=== PATIENT | male | born 2005 | race Caucasian/White ===

== ENCOUNTER 2024-08-09 02:35 | Emergency (ER) | payer SELFPAY ==
--- NOTE | 2024-08-09 02:58 | EDPHYS ---
Physician Documentation [facility] Name: Ewelina Jimenez Age: 18 yrs Sex: Male : 2005 Arrival Date: 08/09/2024 Time: 02:35 Bed 20 Private MD: JEFFERSON Physician Kentrell Fu HPI: 08/09 02:52 This 18 yrs old Male presents to ER via Unassigned with complaints of Leg Pain, jasiel NUMBNESS/SUSPICIOUS BUMPS-LEGS JUANA. 02:52 The patient presents with pain, that is chronic. The complaints affect the right calf jasiel and right quadriceps. Context: resulted from an unknown cause, the patient can fully bear weight, the patient is able to ambulate, without difficulty. Onset: The symptoms/episode began/occurred 45 day(s) ago. Modifying factors: The symptoms are alleviated by nothing. the symptoms are aggravated by nothing. Associated signs and symptoms: The patient has no apparent associated signs or symptoms. Severity of symptoms: At their worst the symptoms were mild, in the emergency department the symptoms are unchanged. Historical: - Allergies: 02:55 No Known Allergies; rg5 - Home Meds: 02:55 None [Active]; rg5 - PMHx: 02:55 None; rg5 - PSHx: 02:55 None; rg5 - Immunization history:: Flu vaccine is up to date. - Infectious Disease History:: Denies. - Family history:: not pertinent. - Social history:: Smoking status: Reported history of juuling and/or vaping. ROS: 02:54 Constitutional: Negative for fever, chills, and weight loss, Eyes: Negative for injury, jasiel pain, redness, and discharge, ENT: Negative for injury, pain, and discharge, Neck: Negative for injury, pain, and swelling, Cardiovascular: Negative for chest pain, palpitations, and edema, Respiratory: Negative for shortness of breath, cough, wheezing, and pleuritic chest pain, Abdomen/GI: Negative for abdominal pain, nausea, vomiting, diarrhea, and constipation, Back: Negative for injury and pain, : Negative for injury, bleeding, discharge, and swelling, Skin: Negative for injury, rash, and discoloration, Neuro: Negative for headache, weakness, numbness, tingling, and seizure, Psych: Negative for depression, anxiety, suicide ideation, homicidal ideation, and hallucinations, Allergy/Immunology: Negative for hives, rash, and allergies, Endocrine: Negative for neck swelling, polydipsia, polyuria, polyphagia, and marked weight changes, Hematologic/Lymphatic: Negative for swollen nodes, abnormal bleeding, and unusual bruising, 02:54 MS/extremity: Positive for swelling, of the right calf and right quadriceps, Exam: 02:54 Constitutional: This is a well developed, well nourished patient who is awake, alert, jasiel and in no acute distress. Head/Face: Normocephalic, atraumatic. Eyes: Pupils equal round and reactive to light, extra-ocular motions intact. Lids and lashes normal. Conjunctiva and sclera are non-icteric and not injected. Cornea within normal limits. Periorbital areas with no swelling, redness, or edema. ENT: Nares patent. No nasal discharge, no septal abnormalities noted. Tympanic membranes are normal and external auditory canals are clear. Oropharynx with no redness, swelling, or masses, exudates, or evidence of obstruction, uvula midline. Mucous membranes moist. Neck: Trachea midline, no thyromegaly or masses palpated, and no cervical lymphadenopathy. Supple, full range of motion without nuchal rigidity, or vertebral point tenderness. No Meningismus. Chest/axilla: Normal chest wall appearance and motion. Nontender with no deformity. No lesions are appreciated. Cardiovascular: Regular rate and rhythm with a normal S1 and S2. No gallops, murmurs, or rubs. Normal PMI, no JVD. No pulse deficits. Respiratory: Lungs have equal breath sounds bilaterally, clear to auscultation and percussion. No rales, rhonchi or wheezes noted. No increased work of breathing, no retractions or nasal flaring. Abdomen/GI: Soft, non-tender, with normal bowel sounds. No distension or tympany. No guarding or rebound. No evidence of tenderness throughout. Back: No spinal tenderness. No costovertebral tenderness. Full range of motion. Male : Normal genitalia with no discharge or lesions. Skin: Warm, dry with normal turgor. Normal color with no rashes, no lesions, and no evidence of cellulitis. Neuro: Awake and alert, GCS 15, oriented to person, place, time, and situation. Cranial nerves II-XII grossly intact. Motor strength 5/5 in all extremities. Sensory grossly intact. Cerebellar exam normal. Normal gait. Psych: Awake, alert, with orientation to person, place and time. Behavior, mood, and affect are within normal limits. 02:54 Musculoskeletal/extremity: ROM: intact in all extremities, full active range of motion, full passive range of motion, Circulation is intact in all extremities. Sensation intact. Compartment Syndrome exam of affected extremity: is normal. DVT Exam: no tenderness, negative Homans' sign noted on exam, no appreciated bluish discoloration, no erythema, no increased warmth, pain, swelling, 02:58 Musculoskeletal/extremity: Extremities: all appear grossly normal, with no appreciated jasiel pain with palpation, right anterior thigh, nodules, not infected, Joints: All joints appear normal with full range of motion. Weight bearing: able to fully bear weight, without difficulty, Tendon exam: specific tendon testing normal through active and passive range of motion Vital Signs: 02:50 BP 144 / 80; Pulse 85; Resp 17; Temp 98(O); Pulse Ox 99% on R/A; Weight 93.44 kg; rg5 Height 6 ft. 0 in. ; Pain 2/10; 02:55 BP 144 / 80; Pulse 85; Resp 17; Temp 98(O); Pulse Ox 99% on R/A; Pain 2/10; rg5 02:50 Body Mass Index 27.94 (93.44 kg, 182.88 cm) rg5 02:50 Pain Scale: Adult rg5 02:55 Pain Scale: Adult rg5 [place] Coma Score: 02:58 Eye Response: spontaneous(4). Motor Response: obeys commands(6). Verbal Response: rg5 oriented(5). Total: 15. MDM: 02:40 Patient medically screened. jasiel 02:56 Differential diagnosis: contusion, tendonitis. Data reviewed: vital signs, nurses jasiel notes. Consideration of Admission/Observation Escalation of care including admission/observation considered. I considered the following discharge prescriptions or medication management in the emergency department Medications were administered in the Emergency Department. See MAR. Administered Medications: No medications were administered Disposition Summary: 08/09/24 02:57 Discharge Ordered Notes: Location: Home(08/09/24 02:57) jasiel Problem: new(08/09/24 02:57) jasiel Symptoms: have improved(08/09/24 02:57) jasiel Condition: Stable(08/09/24 02:57) jasiel Diagnosis - Pain in right leg - lumps, chronic jasiel Followup: jasiel - With: Private Physician - When: 2 - 3 days - Reason: Recheck today's complaints, Continuance of care, Re-evaluation by your physician Followup: jasiel - With: Ablino Mac MD - When: 2 - 3 days - Reason: Recheck today's complaints, Re-evaluation by your physician Discharge Instructions: - Discharge Summary Sheet jasiel - [place] jasiel - Musculoskeletal Pain jasiel Forms: - Medication Reconciliation Form jasiel - Antibiotic Education jasiel - Prescription Opioid Use jasiel - Patient Portal Instructions jasiel - Leadership Thank You Letter [facility] Prescriptions: - Cephalexin 500 mg Oral capsule - take 1 capsule ORAL route every 6 hours for 7 days; 28 capsule; Refills: 0, jasiel Product Selection Permitted - Ibuprofen 600 mg Oral tablet - take 1 tablet ORAL route every 6 hours As needed take with food; 20 tablet; jasiel Refills: 0, Product Selection Permitted Signatures: Kentrell Fu MD MD cha Gallardo, Rommel, RN RN rg5 Corrections: (The following items were deleted from the chart) 02:49 02:46 Inpatient Admission jasiel jasiel 02:49 02:46 Buzombo, Andrew jasiel jasiel 02:49 02:46 Telemetry/MedSurg (Inpatient) jasiel jasiel 02:49 02:46 Fair jasiel jasiel 02:49 02:46 new jasiel jasiel 02:49 02:46 have improved jasiel jasiel 02:49 02:46 Standard jasiel jasiel 02:49 02:46 jasiel jasiel 02:49 02:46 Abdominal tenderness jasiel jasiel 02:49 02:46 Osteomyelitis, unspecified jasiel jasiel 02:49 02:46 Elevated white blood cell count jasiel jasiel 02:49 02:46 Tachycardia, unspecified jasiel jasiel 02:49 02:46 Pressure ulcer of sacral region, stage 4 jasiel jasiel 02:49 02:46 Cellulitis of buttock jasiel jasiel 02:49 02:46 Paraplegia jasiel jasiel
--- NOTE | 2024-08-09 02:58 | ER ---
Nurse's Notes [facility] Name: Ewelina Jimenez Age: 18 yrs Sex: Male : 2005 Arrival Date: 08/09/2024 Time: 02:35 Bed 20 Private MD: Diagnosis: Pain in right leg-lumps, chronic Presentation: 08/09 02:50 Chief complaint: Patient states: having on \T\ off pain \T\ numbness that started on my rg 5 right leg 1 month ago and I feel I have a lump on my upper leg that getting bigger. Coronavirus screen: Vaccine status: Patient reports being unvaccinated. Client denies travel out of the [place] in the last 14 days. Ebola Screen: Patient negative for fever greater than or equal to 101.5 degrees Fahrenheit, and additional compatible Ebola Virus Disease symptoms. Initial Sepsis Screen: Does the patient meet any 2 criteria? No. Patient's initial sepsis screen is negative. Does the patient have a suspected source of infection? No. Patient's initial sepsis screen is negative. Risk Assessment: Do you want to hurt yourself or someone else? Patient reports no desire to harm self or others. Onset of symptoms was July 12, 2024. 02:50 Method Of Arrival: Ambulatory rg5 02:50 Acuity: HARSHAL 4 rg5 Triage Assessment: 02:55 General: Appears in no apparent distress. Behavior is calm, cooperative, appropriate rg5 for age. Pain: Complains of pain in right leg Pain currently is 2 out of 10 on a pain scale. Quality of pain is described as dull, Pain began 1 month. EENT: No deficits noted. Neuro: Level of Consciousness is awake, alert, obeys commands, Oriented to person, place, time, situation. Cardiovascular: Denies chest pain, shortness of breath, Heart tones S1 S2 Capillary refill < 3 seconds Patient's skin is warm and dry. Respiratory: Airway is patent Trachea midline Respiratory effort is even, unlabored, Respiratory pattern is regular, symmetrical. GI: Abdomen is round non-distended, Bowel sounds present X 4 quads. Abd is soft and non tender. : No signs and/or symptoms were reported regarding the genitourinary system. Derm: Skin is intact, Skin is dry, Skin is normal, Skin temperature is warm. Musculoskeletal: Circulation, motion, and sensation intact. Range of motion: intact in all extremities. Historical: - Allergies: 02:55 No Known Allergies; rg5 - Home Meds: 02:55 None [Active]; rg5 - PMHx: 02:55 None; rg5 - PSHx: 02:55 None; rg5 - Immunization history:: Flu vaccine is up to date. - Infectious Disease History:: Denies. - Family history:: not pertinent. - Social history:: Smoking status: Reported history of juuling and/or vaping. Screenin:58 [facility] ED Fall Risk Assessment (Adult) History of falling in the last 3 months, rg5 including since admission No falls in past 3 months (0 pts) Confusion or Disorientation No (0 pts) Intoxicated or Sedated No (0 pts) Impaired Gait No (0 pts) Mobility Assist Device Used No (0 pt) Altered Elimination No (0 pt) Score/Fall Risk Level 0 - 2 = Low Risk Oriented to surroundings, Maintained a safe environment, Hourly rounding (assess needs \T\ fall precautionary measures) done. Abuse screen: Denies threats or abuse. Nutritional screening: No deficits noted. Tuberculosis screening: No symptoms or risk factors identified. Assessment: 02:58 Reassessment: see triage assessment. rg5 Vital Signs: 02:50 BP 144 / 80; Pulse 85; Resp 17; Temp 98(O); Pulse Ox 99% on R/A; Weight 93.44 kg; rg5 Height 6 ft. 0 in. ; Pain 2/10; 02:55 BP 144 / 80; Pulse 85; Resp 17; Temp 98(O); Pulse Ox 99% on R/A; Pain 2/10; rg5 02:50 Body Mass Index 27.94 (93.44 kg, 182.88 cm) rg5 02:50 Pain Scale: Adult rg5 02:55 Pain Scale: Adult rg5 [place] Coma Score: 02:58 Eye Response: spontaneous(4). Motor Response: obeys commands(6). Verbal Response: rg5 oriented(5). Total: 15. ED Course: 02:39 Patient arrived in ED. jj6 02:40 Kentrell Fu MD is Attending Physician. jasiel 02:43 Prince King MD is Hospitalizing Provider. jasiel 02:50 Diana, Pancho, RN is Primary Nurse. rg5 02:55 Triage completed. rg5 02:55 Arm band placed on right wrist. rg5 02:57 Albino Mac MD is Referral Physician. [facility] 02:58 Patient has correct armband on for positive identification. Bed in low position. Call rg5 light in reach. Side rails up X 1. Adult w/ patient. 02:58 No provider procedures requiring assistance completed. rg5 03:00 Provided Education on: post er care done. rg5 03:00 Patient did not have IV access during this emergency room visit. rg5 Administered Medications: No medications were administered Medication: 02:58 VIS not applicable for this client. rg5 Outcome: 02:46 Decision to Hospitalize by Provider. [facility] 02:57 Discharge ordered by . [facility] 03:04 Discharged to home ambulatory, rg5 03:04 Condition: stable 03:04 Discharge instructions given to patient, Instructed on discharge instructions, follow up and referral plans. Demonstrated understanding of instructions, follow-up care, medications, Prescriptions given X 2, 03:05 Patient left the ED. rg5 Signatures: Kentrell Fu MD MD cha Jeffries, Jennifer jj6 Pancho Diana, RN RN rg5
[2024-08-09 06:30] VITALS: BP 144/80; TEMP 98; O2SAT 99
== END 2024-08-09 03:05 | disposition home or self-care (01) ==
LOC: ER 02:35
DX: M79.661 Pain in right lower leg (principal); R22.41 Localized swelling, mass and lump, right lower limb

== ENCOUNTER 2024-11-16 14:46 | Emergency (ER) | payer BC, OTHER ==
--- NOTE | 2024-11-16 15:21 | RAD REPORT ---
EXAMINATION: Ankle Left 3 View CLINICAL INDICATION: Male, 19 years old. ankle injury COMPARISON: No prior exam. FINDINGS: No acute fracture. No malalignment/dislocation. No significant focal degenerative change. Other: n/a IMPRESSION: No acute osseous abnormality.
--- NOTE | 2024-11-16 15:23 | EDPHYS ---
Physician Documentation [facility] Name: Ewelina Jimenez Age: 19 yrs Sex: Male : 2005 Arrival Date: 11/16/2024 Time: 14:46 Bed 17 Private MD: ED Physician Emery Mcknight HPI: 11/16 15:00 This 19 yrs old Male presents to ER via Unassigned with complaints of Ankle ec2 Injury - left. 15:00 Patient arrives today for evaluation of her left ankle injury. States that he stepped ec2 awkwardly and subsequently felt a pop in his left ankle. Had an inversion injury. No other injuries.. Historical: - Allergies: 15:00 No Known Allergies; kc6 - Home Meds: 15:00 None [Active]; kc6 - PMHx: 15:00 None; kc6 - PSHx: 15:00 None; kc6 - Immunization history:: Adult Immunizations up to date. - Infectious Disease History:: Denies. - Social history:: Smoking status: Reported history of juuling and/or vaping. ROS: 15:00 Constitutional: as per hpi ec2 Exam: 15:00 Constitutional: GEN: NAD Head: atraumatic Eyes: EOMI Ears: External ears are ec2 normal. CV: regular rate LUNGS: no respiratory distress ABD: non-distended SKIN: no evidence of rashes MSK: Dorsum of the left foot with TTP, faint amount of TTP on the lateral aspect of the ankle as well. No obvious deformities present. Intact distal neurovascular status. Vital Signs: 14:58 BP 130 / 76; Pulse 92; Resp 16 S; Pulse Ox 99% on R/A; Weight 90.72 kg (R); Height 5 kc6 ft. 11 in. (R); Pain 5/10; 14:58 Body Mass Index 27.89 (90.72 kg, 180.34 cm) kc6 14:58 Pain Scale: Adult kc6 MDM: 14:48 Medical Screening Exam initiated ec2 15:00 Data reviewed: vital signs, nurses notes. ED course: Patient arrives today for ec2 evaluation of a left ankle injury. Examination yields MSK findings as above. Will obtain a radiograph. Suspect ankle sprain, doubt fracture, doubt dislocation. 15:22 ED course: Ankle x-ray independently reviewed and interpreted by me, shows no bony ec2 fracture. Presentation is with ankle sprain. Will discharge home. Return precautions given.. 11/16 14:48 Order name: Ankle Left 3 View XRAY; Complete Time: 15:22 ec2 11/16 15:22 Order name: Matti Wrap; Complete Time: 15:46 ec2 11/16 15:22 Order name: Crutches; Complete Time: 15:46 ec2 Administered Medications: 15:39 Drug: Ketorolac IM 30 mg IM once Route: IM; Site: right deltoid; kc6 15:49 Follow up: Response: No adverse reaction kc6 Disposition Summary: 11/16/24 15:22 Discharge Ordered Notes: Location: Home ec2 Condition: Stable ec2 Diagnosis - Sprain of ankle ec2 Followup: ec2 - With: Private Physician - When: - Reason: Re-evaluation by your physician Discharge Instructions: - Discharge Summary Sheet ec2 - Ankle Sprain, [id number] ec2 Forms: - Medication Reconciliation Form ec2 - Antibiotic Education ec2 - Prescription Opioid Use ec2 - Patient Portal Instructions ec2 - Leadership Thank You Letter ec2 Signatures: Dispatcher [employer] Leonora Castillo RN RN kc6 Emery Mcknight MD MD ec2 Corrections: (The following items were deleted from the chart) 14:48 14:48 Ankle Left 3 View+RAD.RAD.BRZ ordered. EDMS EDMS
--- NOTE | 2024-11-16 15:23 | ER ---
Nurse's Notes [facility] Name: Ewelina Jimenez Age: 19 yrs Sex: Male : 2005 Arrival Date: 11/16/2024 Time: 14:46 Bed 17 Private MD: Diagnosis: Sprain of ankle Presentation: 11/16 14:58 Chief complaint: Patient states: he was walking down the stairs when he rolled his left kc6 ankle and felt a pop. denies LOC. 5/10 pain. Coronavirus screen: At this time, the client does not indicate any symptoms associated with coronavirus-19. Ebola Screen: No symptoms or risks identified at this time. Initial Sepsis Screen: Does the patient meet any 2 criteria? No. Patient's initial sepsis screen is negative. Does the patient have a suspected source of infection? No. Patient's initial sepsis screen is negative. Risk Assessment: Do you want to hurt yourself or someone else? Patient reports no desire to harm self or others. Onset of symptoms was November 16, 2024. 14:58 Method Of Arrival: Wheelchair kc 14:58 Acuity: HARSHAL 4 kc6 Historical: - Allergies: 15:00 No Known Allergies; kc6 - Home Meds: 15:00 None [Active]; kc6 - PMHx: 15:00 None; kc6 - PSHx: 15:00 None; kc6 - Immunization history:: Adult Immunizations up to date. - Infectious Disease History:: Denies. - Social history:: Smoking status: Reported history of juuling and/or vaping. Screenin:00 [facility] ED Fall Risk Assessment (Adult) History of falling in the last 3 months, kc6 including since admission Yes- single mechanical fall (1 pt) Confusion or Disorientation No (0 pts) Intoxicated or Sedated No (0 pts) Impaired Gait No (0 pts) Mobility Assist Device Used No (0 pt) Altered Elimination No (0 pt) Score/Fall Risk Level 0 - 2 = Low Risk Oriented to surroundings, Maintained a safe environment, Educated pt \T\ family on fall prevention, incl call for assistance when getting out of bed. Abuse screen: Denies threats or abuse. Denies injuries from another. Nutritional screening: No deficits noted. Tuberculosis screening: No symptoms or risk factors identified. Assessment: 15:01 General: Appears in no apparent distress. comfortable, well groomed, well developed, kc6 Behavior is calm, cooperative, appropriate for age. Pain: Complains of pain in left foot Pain currently is 5 out of 10 on a pain scale. Pain began suddenly. Neuro: Level of Consciousness is awake, alert, obeys commands, Oriented to person, place, time, situation, Appropriate for age. Cardiovascular: Capillary refill < 3 seconds. Respiratory: Airway is patent Trachea midline Respiratory effort is even, unlabored, Respiratory pattern is regular, symmetrical. GI: No signs and/or symptoms were reported involving the gastrointestinal system. : No signs and/or symptoms were reported regarding the genitourinary system. EENT: No signs and/or symptoms were reported regarding the EENT system. Derm: No signs and/or symptoms reported regarding the dermatologic system. Skin is intact, is healthy with good turgor, Skin is pink, warm \T\ dry. Musculoskeletal: Range of motion: limited in left ankle. Vital Signs: 14:58 BP 130 / 76; Pulse 92; Resp 16 S; Pulse Ox 99% on R/A; Weight 90.72 kg (R); Height 5 kc6 ft. 11 in. (R); Pain 5/10; 14:58 Body Mass Index 27.89 (90.72 kg, 180.34 cm) kc6 14:58 Pain Scale: Adult kc6 ED Course: 14:47 Patient arrived in ED. im 14:48 Emery Mcknight MD is Attending Physician. ec2 14:48 Leonora Goldstein RN is Primary Nurse. kc6 15:00 Triage completed. kc6 15:00 Arm band placed on. kc6 15:00 Patient has correct armband on for positive identification. Bed in low position. Call kc6 light in reach. Side rails up X 1. Pulse ox on. NIBP on. Door closed. Noise minimized. Lights dimmed. Pillow given. 15:01 Patient maintains SpO2 saturation greater than 95% on room air. kc6 15:17 Ankle Left 3 View XRAY In Process Unspecified. EDMS 15:50 Crutch training done. Matti wrap to left ankle. kc6 15:50 No provider procedures requiring assistance completed. Patient did not have IV access kc6 during this emergency room visit. Administered Medications: 15:39 Drug: Ketorolac IM 30 mg IM once Route: IM; Site: right deltoid; kc6 15:49 Follow up: Response: No adverse reaction kc6 Medication: 15:50 VIS not applicable for this client. kc6 Outcome: 15:22 Discharge ordered by . ec2 15:50 Discharged to home with crutches, with significant other, kc6 15:50 Condition: good 15:50 Discharge instructions given to patient, significant other, Instructed on discharge instructions, follow up and referral plans. crutch walking, Demonstrated understanding of instructions, follow-up care, crutch walking, 15:50 Patient left the ED. kc6 Signatures: Dispatcher [employer] Leonora Castillo RN RN kc6 Marylou Moise Edwin, MD MD ec2
[2024-11-16] MEDS ORDERED: KETOROLAC 30 MG/ML INJ ONE (15:30)
[2024-11-16 16:09] VITALS: BP 130/76; O2SAT 99
== END 2024-11-16 15:50 | disposition home or self-care (01) ==
LOC: ER 14:46
DX: S93.402A Sprain of unspecified ligament of left ankle, initial encounter (principal)
CPT/HCPCS: 96372; 99284